=== PATIENT | female | born 1950 | race Caucasian/White ===

== ENCOUNTER 2018-06-18 10:51 | Emergency (ER) | payer MEDICARE, OTHER | END 2018-06-18 13:26 | disposition home or self-care (01) | LOC: FTE 10:51 | DX: Z04.3 Encounter for examination and observation following other accident (principal); I12.0 Hypertensive chronic kidney disease with stage 5 chronic kidney disease or end stage renal disease; N18.6 End stage renal disease; E11.22 Type 2 diabetes mellitus with diabetic chronic kidney disease; Z79.02 Long term (current) use of antithrombotics/antiplatelets; Z79.82 Long term (current) use of aspirin; Z99.2 Dependence on renal dialysis | CPT/HCPCS: 99282 ==